=== PATIENT | male | born 1985 | race Caucasian/White ===

== ENCOUNTER 2018-07-04 12:00 | Emergency (ER) | payer OTHER ==
--- NOTE | 2018-07-04 12:23 | PDOC ---
History of Present Illness - General Chief Complaint: Hematuria Stated Complaint: BLOOD IN URINE Time Seen by Provider: 07/04/18 12:22 - History of Present Illness Initial Comments: 07/04/18 15:38 Chief complaint: Hematuria History of present illness: The patient has had hematuria with each urination for the past 2 days. No dysuria or perineal pain. No urethral discharge. No sexual encounters for the past 2 months. He is just begun working out vigorously at the gym. Review of systems: No abdominal pain, back pain, or other symptoms attributable to the urinary tract as noted above Past medical history: No significant medical or surgical problems past her present, no medications Social history: Visiting the [facility], his remains in [facility], has no health insurance and desires to return to [facility] if further workup is required Family history reviewed and noncontributory including renal disease/renal cancer , cardiac disease, metabolic diseases such as diabetes. Physical exam: Alert and oriented well-developed well-nourished no distress cheerful and cooperative Afebrile, vital signs normal Abdomen soft nontender without mass or organomegaly exam reveals normal testes bilaterally, without masses or tenderness. No peritoneal tenderness to palpation. No inflammatory changes. No urethral discharge or lesions. Urinalysis reveals red cells but no white cells Impression: Unlikely infection, possibly related to vigorous exercise, must rule out kidney lesion/cancer. Plan:: Empiric antibiotic pending urine culture, GC, chlamydia. Urologist follow -up for further kidney evaluation and possible imaging. Paus the vigorous exercise temporarily. Patient understands that there is a chance that the bleeding may indicate a kidney tumor or cancer in the further follow-up is required. He is given a urology referral, but plans to return to [facility] for further evaluation within the next few weeks. Past History - Past Medical History Allergies/Adverse Reactions: Allergies Allergy/AdvReac Type Severity Reaction Status Date / Time No Known Allergies Allergy Verified 07/04/18 12:19 Home Medications: Ambulatory Orders Cephalexin Monohydrate [Keflex] 250 mg PO Q6H #30 capsule 07/04/18 *DC/Admit/Observation/Transfer Diagnosis at time of Disposition: Hematuria Qualifiers: Hematuria type: unspecified type Qualified Code(s): R31.9 - Hematuria, unspecified - Discharge Dispostion Disposition: HOME Condition at time of disposition: Stable Decision to Admit order: No - Prescriptions Prescriptions: Cephalexin Monohydrate [Keflex] 250 mg PO Q6H #30 capsule - Referrals Referrals: Colby Sheikh MD [Staff Physician] - 3 days - Patient Instructions Printed Discharge Instructions: DI for Hematuria Additional Instructions: Drink lots of fluids. No vigorous exercise for 1 week. Antibiotics as directed. See urologist for further evaluation and treatment as directed within 1 week. It is important to make sure that you don't have bleeding from the kidney, which could be caused by a serious medical condition such as a tumor or cancer. - Post Discharge Activity Forms/Work/School Notes: Back to Work
[2018-07-04 12:50] VITALS: BP 128/76; PULSE 74; TEMP 98.7; BMI 22.4
[2018-07-04 13:20] LABS: EPITHELIAL CELLS 1+ /hpf
== END 2018-07-04 15:15 | disposition home or self-care (01) ==
LOC: FER 12:00
DX: R31.9 Hematuria, unspecified (principal)
CPT/HCPCS: 36415; 81003; 81015; 87086; 87491; 87591; 99282-25